=== PATIENT | female | born 1970 | race Caucasian/White ===

== ENCOUNTER → 2017-02-08 | Outpatient (CLI) | payer OTHER ==
[~2017-02-08] MED LIST: BUPR300T20 PO; CITA-49 PO
--- NOTE | 2017-02-08 08:45 | DI ---
Indication: ITS.REASON: S99.911D INJURY trauma with posterior and lateral ankle pain PROCEDURE: MRI ANKLE RIGHT W/O CONTRAST: Encounter: Initial Comparison: Right ankle Radiographs dated January 16, 2017 Technique: Multiplanar multisequence MR imaging of the right ankle was performed without contrast. FINDINGS: The Achilles tendon is normal in morphology and signal. There is a small area of susceptibility artifact at the calcaneal insertion of the calyces tendon. This correlates to a tiny density seen on the radiographs which probably represents a 1 mm metallic foreign body. Extensor tendons are normal. The posterior tibialis, flexor digitorum, and flexor hallucis longus tendons are normal. The peroneus longus and brevis tendons are normal. The deltoid ligament is intact with increased signal intensity within it. The anterior talofibular is at least partially torn with abnormal increased signal within it. There may be a couple intact fibers remaining. The calcaneofibular, and posterior talofibular ligaments are intact. The plantar fascia is normal. Bone marrow signal is unremarkable. IMPRESSION: 1. Partial tear of the anterior talofibular ligament. 2. Signal abnormality in the deltoid ligament could be due to recent or old trauma. No complete tear. 3. Evidence of a tiny metallic foreign body posterior to the calcaneus at the Achilles insertion. .
== END ==
LOC: IMA 06:38
PROVIDERS: ATTEND Family Medicine Sports Medicine
DX: S93.491A Sprain of other ligament of right ankle, initial encounter (principal); R93.8 Abnormal findings on diagnostic imaging of other specified body structures